=== PATIENT | female | born 1950 | race Caucasian/White ===

== ENCOUNTER 2023-04-28 15:06 | Outpatient (AMB) | payer MEDICARE, SELFPAY ==
[2023-04-28 15:15] VITALS: BP 89/60; PULSE 62; O2SAT 94; BMI 38.1
--- NOTE | 2023-04-28 15:15 | HO.NEPHOV ---
HPI HPI Comments History of Present Illness Details Hal is a gentleman with advanced renal failure. Over the last few weeks she has been having progressive shortness of breath. 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 without significant improvement. Metolazone has been prescribed but she has not picked up the prescription yet today. She was accompanied by her family. Vital Signs 04/28/23 15:15 Height 5 ft Weight 195 lb BMI 38.1 BP 89/60 L Pulse 62 Pulse Source Pulse Oximeter Pulse Oximetry (%) 94 Physical Exam Vital Signs: Last Vital Signs Pulse 62 04/28/23 15:15 BP 89/60 L 04/28/23 15:15 Pulse Ox 94 04/28/23 15:15 BMI result Body Mass Index 38.1 Const General: comfortable Orientation/consciousness: patient oriented x3 HEENT Head: No normal to inspection Mouth: moist mucous membranes Neck Neck: Yes supple and Yes no JVD Resp Auscultation: rales and No rub present Cardio Jugular venous distension: no JVD Palpation: no palpable S3 and no palpable S4 Heart sounds: no rubs GI Palpation (GI): Soft to palpation and nontender Percussion: No Fluid wave present General: Yes no CVA tenderness Back/Spine/Pelvis Back: no CVA tenderness Skin General skin exam: no rashes or lesions noted Neuro General: patient oriented x3 Extrem General: No clubbing Right upper extremity: edema Assessment & Plan Assessment & Plan (1) CKD (chronic kidney disease) stage 4, GFR 15-29 ml/min: Code(s): N18.4 - Chronic kidney disease, stage 4 (severe) Plan: Amira has advanced renal failure approaching end stage renal disease. No absolute indication for dialysis yet (2) CHF (congestive heart failure): Code(s): I50.9 - Heart failure, unspecified Plan: Clinically she is in heart failure with bilateral rales and shortness of breath. She has not responded to approximate 40 minutes b.i.d.. I recommended hospitalization for intravenous diuretics and further management. I have discussed this with her daughter and she will take mom to the emergency room. (3) Renal cell carcinoma: Code(s): C64.9 - Malignant neoplasm of unspecified kidney, except renal pelvis Coding Level of Care Code Est Pt Level 4 (33893) Diagnoses CKD (chronic kidney disease) stage 4, GFR 15-29 ml/min N18.4 CHF (congestive heart failure) I50.9 Renal cell carcinoma C64.9
== END 2023-04-28 15:38 | disposition home or self-care (01) ==
PROVIDERS: PCP Internal Medicine; Visit Provider Internal Medicine Hypertension Specialist
DX: N18.4 Chronic kidney disease, stage 4 (severe) (principal); I50.9 Heart failure, unspecified; C64.9 Malignant neoplasm of unspecified kidney, except renal pelvis
CPT/HCPCS: 99215

== ENCOUNTER → 2023-04-28 15:06 | Outpatient (BNVA) | payer MEDICARE, SELFPAY | PROVIDERS: PCP Internal Medicine; Visit Provider Internal Medicine Hypertension Specialist | DX: N18.4 Chronic kidney disease, stage 4 (severe) (principal); I50.9 Heart failure, unspecified; C64.9 Malignant neoplasm of unspecified kidney, except renal pelvis | CPT/HCPCS: 99212 ==

== ENCOUNTER 2023-05-26 14:00 | Outpatient (AMB) | payer MEDICARE, SELFPAY ==
[2023-05-26 14:01] VITALS: BP 100/70; PULSE 65; O2SAT 97; BMI 36.9
--- NOTE | 2023-05-26 14:01 | HO.NEPHOV ---
HPI HPI Comments History of Present Illness Details Amira is a pleasant woman with advanced renal failure. Recently hospitalized for CHF Currently on Lasix 120 mg Q AM And 80 mg Q PM Spironolactone 50 mg QD has been added She has lost some weight Respiration has improved Recently lost her mom to pancreatic CA Vital Signs 05/26/23 14:01 Height 5 ft Weight 189 lb BMI 36.9 BP 100/70 Blood Pressure Location Rt brachial Position Sitting Pulse 65 Pulse Source Pulse Oximeter Pulse Oximetry (%) 97 Oxygen Delivery Method Room Air Physical Exam Vital Signs: Last Vital Signs Pulse 65 05/26/23 14:01 BP 100/70 05/26/23 14:01 Pulse Ox 97 05/26/23 14:01 Oxygen Delivery Method Room Air 05/26/23 14:01 BMI result Body Mass Index 36.9 Const General: comfortable Orientation/consciousness: patient oriented x3 HEENT Head: No normal to inspection Mouth: moist mucous membranes Neck Neck: Yes supple and Yes no JVD Resp Auscultation: rales and No rub present Cardio Jugular venous distension: no JVD Palpation: no palpable S3 and no palpable S4 Heart sounds: no rubs GI Palpation (GI): Soft to palpation and nontender Percussion: No Fluid wave present General: Yes no CVA tenderness Back/Spine/Pelvis Back: no CVA tenderness Skin General skin exam: no rashes or lesions noted Neuro General: patient oriented x3 Extrem Other: Leg edema 1+ General: No clubbing Assessment & Plan Assessment & Plan (1) CKD (chronic kidney disease) stage 4, GFR 15-29 ml/min: Code(s): N18.4 - Chronic kidney disease, stage 4 (severe) (2) CHF (congestive heart failure): Code(s): I50.9 - Heart failure, unspecified (3) Renal cell carcinoma: Code(s): C64.9 - Malignant neoplasm of unspecified kidney, except renal pelvis Plan Elderly woman with advanced CKD approaching ESRD CHF A.fib Hyperkalemia Recommend Keep current dose of LASIX DECREASE SPIRONOLACTONE to 25 mg QD from 50 mg due to hyperkalemia Low K diet Monitor daily weight 2 gm dietary sodium restriction Continue to avoid nephrotoxic agents including NSAIDS NO indication for dialysis yet Orders: Orders Blood Urea Nitrogen 5 Weeks N18.4 - Chronic kidney disease, stage 4 (severe) Calcium 5 Weeks N18.4 - Chronic kidney disease, stage 4 (severe) Electrolytes 5 Weeks N18.4 - Chronic kidney disease, stage 4 (severe) Creatinine 5 Weeks N18.4 - Chronic kidney disease, stage 4 (severe) Complete Blood Count no Diff 5 Weeks N18.4 - Chronic kidney disease, stage 4 (severe) Coding Level of Care Code Est Pt Level 4 (69987) Diagnoses CKD (chronic kidney disease) stage 4, GFR 15-29 ml/min N18.4 CHF (congestive heart failure) I50.9 Renal cell carcinoma C64.9 Results Reviewed Results Reviewed: as of 05/24/23 K 5.5 Cr 2.3 eGFR 21ml/mt Nephrology Results: No Data to Display
== END 2023-05-26 14:29 | disposition home or self-care (01) ==
PROVIDERS: PCP Internal Medicine; Visit Provider Internal Medicine Hypertension Specialist
DX: N18.4 Chronic kidney disease, stage 4 (severe) (principal); I50.9 Heart failure, unspecified; C64.9 Malignant neoplasm of unspecified kidney, except renal pelvis
CPT/HCPCS: 99214

== ENCOUNTER → 2023-05-26 14:00 | Outpatient (BNVA) | payer MEDICARE, SELFPAY | PROVIDERS: PCP Internal Medicine; Visit Provider Internal Medicine Hypertension Specialist | DX: N18.4 Chronic kidney disease, stage 4 (severe) (principal); I50.9 Heart failure, unspecified; C64.9 Malignant neoplasm of unspecified kidney, except renal pelvis | CPT/HCPCS: 99212 ==

== ENCOUNTER 2023-07-14 14:17 | Outpatient (AMB) | payer MEDICARE, SELFPAY ==
[2023-07-14 14:22] VITALS: BMI 35.8
--- NOTE | 2023-07-14 14:22 | HO.NEPHOV_ITS ---
HPI HPI Comments History of Present Illness Details Amira is a pleasant woman with advanced renal failure. Recently hospitalized for CHF Currently on Lasix 120 mg Q AM And 80 mg Q PM Spironolactone 50 mg QD has been added She has lost some weight Respiration has improved 07/14/23 Currently in a NH Had cellulitis PFSH Family History (Updated 07/14/23 @ 14:31 by Nahomy Hernandez) Father Kidney disease Hypertension Diabetes Mother Hypertension Diabetes Social History Alcohol intake: never Patient Tobacco Use Status: Never used Tobacco Use of substances other than those prescribed or required for medical reasons: No Vital Signs 07/14/23 14:22 Height 5 ft Weight 183 lb 5 oz BMI 35.8 Physical Exam Vital Signs: BMI result Body Mass Index 35.8 Assessment & Plan Assessment & Plan (1) CKD (chronic kidney disease) stage 4, GFR 15-29 ml/min: Code(s): N18.4 - Chronic kidney disease, stage 4 (severe) (2) CHF (congestive heart failure): Code(s): I50.9 - Heart failure, unspecified (3) Renal cell carcinoma: Code(s): C64.9 - Malignant neoplasm of unspecified kidney, except renal pelvis Plan Elderly woman with advanced CKD approaching ESRD CHF A.fib Hyperkalemia Recommend Low K diet Monitor daily weight 2 gm dietary sodium restriction Continue to avoid nephrotoxic agents including NSAIDS No indication for dialysis yet Telehealth Telehealth Location of provider rendering services: practice address Location of patient: other Patient Identification confirmed using: Name, : Yes Telehealth method: voice only Patient verbally consented to treatment: Yes Patient verbally consented to billing insurance company: Yes Patient informed of any privacy concerns related to visit: Yes Minutes spent on Phone/Video with Pt.: 11 Coding Level of Care Code Tele Est Pt Level 2 (18278) Diagnoses CKD (chronic kidney disease) stage 4, GFR 15-29 ml/min N18.4 CHF (congestive heart failure) I50.9 Renal cell carcinoma C64.9 Results Reviewed Results Reviewed: Medical records from [facility] reviewed Nephrology Results: No Data to Display
== END 2023-08-20 10:06 | disposition home or self-care (01) ==
PROVIDERS: PCP Internal Medicine; Visit Provider Internal Medicine Hypertension Specialist
DX: N18.4 Chronic kidney disease, stage 4 (severe) (principal); I50.9 Heart failure, unspecified; C64.9 Malignant neoplasm of unspecified kidney, except renal pelvis
CPT/HCPCS: 99442

== ENCOUNTER → 2023-07-14 14:17 | Outpatient (BNVA) | payer MEDICARE, SELFPAY | PROVIDERS: PCP Internal Medicine; Visit Provider Internal Medicine Hypertension Specialist ==

== ENCOUNTER 2023-10-09 13:27 | Outpatient (AMB) | payer MEDICARE, SELFPAY ==
[2023-10-09 13:31] VITALS: BP 110/76; PULSE 78; O2SAT 96; BMI 38.1
--- NOTE | 2023-10-09 13:31 | HO.NEPHOV ---
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 Accompanied by: Daughter Allergies Penicillins [PENICILLINS] Allergy (Intermediate, Verified 10/09/23 13:33) RASH acetaminophen [Percocet] Allergy (Unknown, Verified 10/09/23 13:33) nausea hydrocodone [HYDROCODONE] Allergy (Unknown, Verified 10/09/23 13:33) UNKNOWN lovastatin [LOVASTATIN] Allergy (Unknown, Verified 10/09/23 13:33) UNKNOWN, nausea oxycodone [OXYCODONE] Allergy (Unknown, Verified 10/09/23 13:33) UNKNOWN penicillin V Allergy (Unknown, Verified 10/09/23 13:33) hives valsartan [From DIOVAN] Allergy (Unknown, Verified 10/09/23 13:33) UNKNOWN Vicodin Allergy (Unknown, Uncoded 11/25/19 00:00) nausea HPI Comments Details: Amira is a pleasant woman with advanced renal failure. 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 Feels better today No dyspnea at rest Still has edema , but improved PFSH Family History Father Kidney disease Hypertension Diabetes Mother Hypertension Diabetes Social History Alcohol intake: never Patient Tobacco Use Status: Never used Tobacco Physical Exam Vital Signs: Last Vital Signs Pulse 78 10/09/23 13:31 BP 110/76 10/09/23 13:31 Pulse Ox 96 10/09/23 13:31 Oxygen Delivery Method Room Air 10/09/23 13:31 BMI result Body Mass Index 38.1 Const General: comfortable Nutritional Appearance: well nourished Orientation/consciousness: patient oriented x3 HEENT Head: No normal to inspection Mouth: moist mucous membranes Neck Neck: Yes supple and Yes no JVD Resp Auscultation: clear to auscultation bilaterally, no rales and rub present Cardio Jugular venous distension: no JVD Palpation: no palpable S3 and no palpable S4 Heart sounds: no rubs GI Palpation (GI): Soft to palpation and nontender Percussion: No Fluid wave present General: Yes no CVA tenderness Back/Spine/Pelvis Back: no CVA tenderness Skin General skin exam: no rashes or lesions noted Neuro General: patient oriented x3 Extrem General: No clubbing and Yes edema (1+) Results Reviewed Results Reviewed: Labs reviewed Cr 2.79 ( down from 3.0) K 3.1 Nephrology Results: No Data to Display Assessment & Plan Assessment & Plan (1) CKD (chronic kidney disease) stage 4, GFR 15-29 ml/min: Code(s): N18.4 - Chronic kidney disease, stage 4 (severe) Category: Medical (2) CHF (congestive heart failure): Code(s): I50.9 - Heart failure, unspecified Category: Medical (3) Renal cell carcinoma: Code(s): C64.9 - Malignant neoplasm of unspecified kidney, except renal pelvis Category: Medical Plan Elderly woman with advanced CKD approaching ESRD CHF A.fib Hyperkalemia- Now resolved. Currrently hypokalemic Add KCL 8 meq Keep LAsix 40 mg BID ADD Metolazone 2.5 mg WEEKLY ( can take 1 a day for 2 days and then weekly and based on weight - If more than 194 lbs-take extra dose of Metolazone) Monitor daily weight 2 gm dietary sodium restriction Continue to avoid nephrotoxic agents including NSAIDS Orders: Orders Complete Blood Count no Diff 1 Week N18.4 - Chronic kidney disease, stage 4 (severe) Basic Metabolic Panel 1 Week N18.4 - Chronic kidney disease, stage 4 (severe) Medications: New metolazone 2.5 mg PO .once a week 10 tabs 0RF potassium chloride ER 8 mEq PO DAILY 30 tabs 1RF Coding Level of Care Code Est Pt Level 4 (64482) Diagnoses CKD (chronic kidney disease) stage 4, GFR 15-29 ml/min N18.4 CHF (congestive heart failure) I50.9 Renal cell carcinoma C64.9
== END 2023-10-09 14:01 | disposition home or self-care (01) ==
PROVIDERS: PCP Internal Medicine; Visit Provider Internal Medicine Hypertension Specialist
DX: N18.4 Chronic kidney disease, stage 4 (severe) (principal); I50.9 Heart failure, unspecified; C64.9 Malignant neoplasm of unspecified kidney, except renal pelvis
CPT/HCPCS: 99214

== ENCOUNTER → 2023-10-09 13:27 | Outpatient (BNVA) | payer MEDICARE, SELFPAY | PROVIDERS: PCP Internal Medicine; Visit Provider Internal Medicine Hypertension Specialist | DX: N18.4 Chronic kidney disease, stage 4 (severe) (principal); I50.9 Heart failure, unspecified; C64.9 Malignant neoplasm of unspecified kidney, except renal pelvis; Z79.899 Other long term (current) drug therapy | CPT/HCPCS: 99212 ==

== ENCOUNTER 2023-12-04 10:17 | Outpatient (AMB) | payer MEDICARE, SELFPAY ==
--- NOTE | 2023-12-04 10:16 | HO.NEPHOV_ITS ---
Vital Signs 12/04/23 10:17 Height 5 ft Weight 183 lb BMI 35.7 Intake Visit Reasons: CHF / 2 MO FU/ Conf Electronic Scale Tester Required: No Accompanied by: Daughter Allergies Penicillins [PENICILLINS] Allergy (Intermediate, Verified 12/04/23 10:16) RASH acetaminophen [Percocet] Allergy (Unknown, Verified 12/04/23 10:16) nausea hydrocodone [HYDROCODONE] Allergy (Unknown, Verified 12/04/23 10:16) UNKNOWN lovastatin [LOVASTATIN] Allergy (Unknown, Verified 12/04/23 10:16) UNKNOWN, nausea oxycodone [OXYCODONE] Allergy (Unknown, Verified 12/04/23 10:16) UNKNOWN penicillin V Allergy (Unknown, Verified 12/04/23 10:16) hives valsartan [From DIOVAN] Allergy (Unknown, Verified 12/04/23 10:16) UNKNOWN Vicodin Allergy (Unknown, Uncoded 11/25/19 00:00) nausea HPI Comments Details: Amira is a pleasant woman with advanced renal failure. 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 Overall she is doing well. She took an extra dose of metolazone. No shortness of breath. No change in edema PFSH Family History Father Kidney disease Hypertension Diabetes Mother Hypertension Diabetes Social History Alcohol intake: never Patient Tobacco Use Status: Never used Tobacco Physical Exam Vital Signs: BMI result Body Mass Index 35.7 Telehealth Telehealth Telehealth Platform: Telephone Location of provider rendering services: practice address Location of patient: address on file Patient Identification confirmed using: Name, : Yes Telehealth method: voice only Results Reviewed Results Reviewed: As of 12/02/2023 Creatinine 2.58. Hemoglobin 10.1. Potassium 3.5 Nephrology Results: No Data to Display Assessment & Plan Assessment & Plan (1) CKD (chronic kidney disease) stage 4, GFR 15-29 ml/min: Code(s): N18.4 - Chronic kidney disease, stage 4 (severe) Category: Medical (2) CHF (congestive heart failure): Code(s): I50.9 - Heart failure, unspecified Category: Medical (3) Renal cell carcinoma: Code(s): C64.9 - Malignant neoplasm of unspecified kidney, except renal pelvis Category: Medical Plan Elderly woman with advanced CKD approaching ESRD CHF A.fib Hyperkalemia- Now resolved. Keep KCL 8 meq to replace potassium losses from diuretic Keep LAsix 40 mg BID Metolazone 2.5 mg WEEKLY ( can take 1 a day for 2 days and then weekly and based on weight - If more than 194 lbs-take extra dose of Metolazone) Monitor daily weight 2 gm dietary sodium restriction Continue to avoid nephrotoxic agents including NSAIDS Orders: Orders Basic Metabolic Panel 2 Months N18.4 - Chronic kidney disease, stage 4 (severe) Complete Blood Count no Diff 2 Months N18.4 - Chronic kidney disease, stage 4 (severe) Coding Level of Care Code Tele Est Pt Level 2 (37335) Diagnoses CKD (chronic kidney disease) stage 4, GFR 15-29 ml/min N18.4 CHF (congestive heart failure) I50.9 Renal cell carcinoma C64.9
[2023-12-04 10:17] VITALS: BMI 35.7
== END 2023-12-04 11:17 | disposition home or self-care (01) ==
PROVIDERS: PCP Internal Medicine; Visit Provider Internal Medicine Hypertension Specialist
DX: N18.4 Chronic kidney disease, stage 4 (severe) (principal); I50.9 Heart failure, unspecified; C64.9 Malignant neoplasm of unspecified kidney, except renal pelvis
CPT/HCPCS: 99441

== ENCOUNTER → 2023-12-04 10:17 | Outpatient (BNVA) | payer MEDICARE, SELFPAY | PROVIDERS: PCP Internal Medicine; Visit Provider Internal Medicine Hypertension Specialist ==